=== PATIENT | male | born 1955 | race Two or more races ===

== ENCOUNTER 2016-12-16 11:59 | Inpatient (IN) | payer BC ==
[~2016-12-16] VITALS: Ht 165.1 cm; Wt 90.7 kg
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
--- NOTE | 2016-12-16 12:20 | NUR ---
joe fleming at bedside for eval.
[2016-12-16 12:30] LABS: BASOPHILS % (AUTO) 0.6 % (0.0-2.0); EOSINOPHILS # (AUTO) 0.3 /CMM (0.0-0.7); EOSINOPHILS % (AUTO) 4.3 % (0.0-6.0); HEMATOCRIT 33 % (39-51); HEMOGLOBIN 11.3 g/dL (13.5-17.5); LYMPHOCYTES # (AUTO) 1.8 /CMM (0.8-4.8); LYMPHOCYTES % (AUTO) 25.7 % (20.0-44.0); MEAN CORPUSCULAR HEMOGLOBIN 28 PG (26.0-33.0); MEAN CORPUSCULAR HGB CONC 34 g/dl (31.0-36.0); MEAN CORPUSCULAR VOLUME 83 fL (80-96); MONOCYTES # (AUTO) 0.5 /CMM (0.1-1.30); MONOCYTES % (AUTO) 6.7 % (2.0-12.0); NEUTROPHILS # (AUTO) 4.4 /CMM (1.8-8.9); NEUTROPHILS % (AUTO) 62.7 % (43.0-81.0); PLATELET COUNT (AUTO) 213 /CMM (150-450); RED BLOOD CELL COUNT(AUTO) 4.01 MIL/uL (4.5-6.0); WHITE BLOOD COUNT (AUTO) 7.1 K/uL (4.3-11.0)
[2016-12-16] MEDS ORDERED: TRAMADOL HCL 50 MG TABLET PO ONE (12:30)
[2016-12-16] MEDS ORDERED: TRAMADOL HCL 50 MG TABLET ONE (12:35)
[2016-12-16 12:45] LABS: ALBUMIN 3.5 g/dL (3.4-5.0); BILIRUBIN,DIRECT 0.1 mg/dL (0.0-0.2); BILIRUBIN,TOTAL 0.3 mg/dL (0.2-1.0); CALCIUM, SERUM 9.6 mg/dL (8.5-10.1); POTASSIUM 3.7 mmol/L (3.5-5.1); TOTAL PROTEIN, SERUM 7.3 g/dL (6.4-8.2)
[2016-12-16] MEDS ORDERED: IV NS 0.9% 0 ML ONE (13:00)
[2016-12-16] MEDS ORDERED: IV NS 0.9% 1,000 ML BAG IV ONE (13:00)
[2016-12-16] MEDS ORDERED: IV SET PRIMARY PUMP SET 1 EA INFUS.SET MC ONE ×2 (13:00→15:28)
[2016-12-16] MEDS ORDERED: IV SET PRIMARY 1 EA INFUS.SET MC ONE (13:02)
[2016-12-16] MEDS ORDERED: IV NS 0.9% 1,000 ML ONE (13:02)
[2016-12-16 13:08] LABS: PROTHROMBIN TIME 10.4 SECS (9.5-12.7); TROPONIN I < 0.017 ng/mL (0.00-0.056)
[2016-12-16 13:16] LABS: APPEARANCE,URINE Clear (CLEAR); BILIRUBIN,URINE Negative (NEGATIVE); BLOOD, URINE Negative Ery/uL (NEGATIVE); COLOR,URINE Yellow (YELLOW); KETONES,URINE Negative (NEGATIVE); LEUKOCYTE ESTERASE ,URINE Negative (NEGATIVE); NITRITE, URINE Negative (NEGATIVE); PH,URINE 6.5 (5.0-8.0); PROTEIN,URINE >=300 mg/dl (NEGATIVE); UGLUCOSE Negative (NEGATIVE); UROBILINOGEN,URINE 0.2 EU/dL (0.2)
--- NOTE | 2016-12-16 13:18 | NUR ---
CALLED NURSING SUP. FOR TELE BED
[2016-12-16 13:22] LABS: SERUM AMMONIA 17 umol/L (11-32)
--- NOTE | 2016-12-16 13:35 | NUR ---
pt to radiology for head ct scan via wheelchair.
[2016-12-16] MEDS ORDERED: FINA5TAB11 PO (13:36)
[2016-12-16] MEDS ORDERED: PANT40TA4 PO (13:36)
[2016-12-16] MEDS ORDERED: CALC667C6 PO (13:36)
[2016-12-16] MEDS ORDERED: HYDR100T27 PO (13:36)
[2016-12-16] MEDS ORDERED: NORT25CA PO (13:36)
[2016-12-16] MEDS ORDERED: CLON0.2T PO (13:36)
[2016-12-16] MEDS ORDERED: ISOS30TA6 PO (13:36)
[2016-12-16] MEDS ORDERED: DOXA4TAB2 PO (13:36)
[2016-12-16] MEDS ORDERED: HYDR25TA4 PO (13:36)
[2016-12-16] MEDS ORDERED: LOVA20TA2 PO (13:36)
[2016-12-16] MEDS ORDERED: DILT240C56 PO (13:36)
[2016-12-16] MEDS ORDERED: TAMS-12 PO (13:36)
--- NOTE | 2016-12-16 14:00 | NUR ---
ELLA PAGED, TILE LAYER HELPER
--- NOTE | 2016-12-16 14:27 | NUR ---
report given to nurse. pt awaiting transfer to floor.
--- NOTE | 2016-12-16 14:40 | NUR ---
MS RN OPENING NOTES RECEIVED PT FROM ER ROOM IN STABLE CONDITION. NO SOB OR SIGNS OF DISTRESS NOTED. PT WAS TRANSFERRED TO THE BED SAFELY. AT BEDSIDE. WILL CONTINUE ADMISSION PROCESS AND CARRY OUT ORDERS.
[2016-12-16] MEDS ORDERED: Z GUARD REMEDY 2 OZ OINT TP PRN (15:00)
[2016-12-16] MEDS ORDERED: ONDANSETRON HCL/PF 4 MG/2 ML VIAL IVP PRN (15:00)
[2016-12-16] MEDS ORDERED: MAG HYDROX/AL HYDROX/SIMETH 30 ML UDC PO PRN (15:00)
[2016-12-16] MEDS ORDERED: ZOLPIDEM TARTRATE 5 MG TABLET PO PRN (15:00)
[2016-12-16] MEDS ORDERED: MAGNESIUM HYDROXIDE 30 ML UDC PO PRN (15:00)
[2016-12-16] MEDS ORDERED: ACETAMINOPHEN 325 MG TABLET PO PRN (15:00)
[2016-12-16] MEDS: IV NS 0.9% 1,000 ML IV PRN (15:46)
[2016-12-16 16:00] VITALS: BP 137/67
[2016-12-16 16:15] VITALS: BP 137/67
[2016-12-16] MEDS: CALCIUM ACETATE 667 MG TABLET PO SCH (17:12)
[2016-12-16] MEDS: hydrALAZINE HCL 50 MG TABLET PO SCH (17:13)
--- NOTE | 2016-12-16 18:27 | NUR ---
DEFENCE INTELLIGENCE ANALYST NOTES PT IN STABLE CONDITION, AWAKE AND IN BED. A/O X4. TELE MONITOR ON READING SR 1ST DEGREE AV BLOCK. NO SOB OR SIGNS OF DISTRESS AT THIS TIME. IV ON LEFT AC 28G RUNNING NS AT 125ML/HR. PT IS TOLERATING IT WELL. IV PATENT AND IN TACT. NO REDNESS OR INFLAMMATION NOTED. SON AND AT BEDSIDE. BED IN LOW LOCKED POSITION, SIDE RAILS UP X2, CALL LIGHT WITHIN PT REACH. ALL SAFETY MEASURES ENFORCED. ALL ORDERS CARRIED OUT AND PT NEEDS WELL ATTENDED TO. WILL ENDORSE TO ENGINEER GAS PUMPING STATION NURSE OR WILFRED Addendum: 12/16/16 at 1832 by GABRIELLE COOK RN DEFENCE INTELLIGENCE ANALYST CLOSING NOTES
[2016-12-16 20:00] VITALS: BP 144/85
[2016-12-16] MEDS: HYDROCODONE/APAP 5/325MG 1 EACH TABLET PO PRN (20:02)
[2016-12-16] MEDS: ISOSORBIDE MONONITRATE (30MG) 30 MG TAB.SR.24H PO SCH (22:00)
[2016-12-16] MEDS ORDERED: LOVASTATIN (NON FORMULARY) 20 MG TABLET PO SCH (22:00)
[2016-12-16] MEDS ORDERED: HYDROCHLOROTHIAZIDE 25 MG TABLET PO SCH (22:00)
[2016-12-16] MEDS: ATORVASTATIN 10 MG TABLET PO SCH (22:06)
[2016-12-16] MEDS: FINASTERIDE (5 MG) 5 MG TABLET PO SCH (22:06)
[2016-12-16] MEDS: CLONIDINE HCL 0.1 MG TABLET PO SCH (22:06)
[2016-12-16] MEDS: TAMSULOSIN 0.4 MG CAP.SR.24H PO SCH (22:07)
[2016-12-16] MEDS: NORTRIPTYLINE HCL 25 MG CAPSULE PO SCH (22:07)
[2016-12-17] VITALS: BP 133/85
[2016-12-17] MEDS: IV NS 0.9% 1,000 ML IV PRN ×3 (00:12→18:12)
[2016-12-17 04:00] VITALS: BP 140/81
[2016-12-17 06:26] LABS: BASOPHILS % (AUTO) 0.7 % (0.0-2.0); EOSINOPHILS # (AUTO) 0.3 /CMM (0.0-0.7); EOSINOPHILS % (AUTO) 6.1 % (0.0-6.0); HEMATOCRIT 31 % (39-51); HEMOGLOBIN 10.6 g/dL (13.5-17.5); LYMPHOCYTES # (AUTO) 1.5 /CMM (0.8-4.8); LYMPHOCYTES % (AUTO) 26.9 % (20.0-44.0); MEAN CORPUSCULAR HEMOGLOBIN 29 PG (26.0-33.0); MEAN CORPUSCULAR HGB CONC 34 g/dl (31.0-36.0); MEAN CORPUSCULAR VOLUME 84 fL (80-96); MONOCYTES # (AUTO) 0.4 /CMM (0.1-1.30); MONOCYTES % (AUTO) 7.4 % (2.0-12.0); NEUTROPHILS # (AUTO) 3.2 /CMM (1.8-8.9); NEUTROPHILS % (AUTO) 58.9 % (43.0-81.0); PLATELET COUNT (AUTO) 184 /CMM (150-450); RDW COEFFICIENT OF VARIATION 12.9 (11.5-15.0); RED BLOOD CELL COUNT(AUTO) 3.69 MIL/uL (4.5-6.0); WHITE BLOOD COUNT (AUTO) 5.4 K/uL (4.3-11.0)
[2016-12-17] MEDS ORDERED: FLUTICASONE PROPIONATE 16 GM BOTTLE NS PRN (06:30)
--- NOTE | 2016-12-17 06:48 | NUR ---
OPERATIONS PLANT ATTENDANT NOTES AWAKE & RESPONSIVE. NOT IN ANY DISTRESS. NO SOB NOTED. DENIES ANY PAIN OR DISCOMFORT AT THIS TIME. ON TELE SR @ 72 WITH 1AVB WITH IVF INFUSING WELL. MONITORED ACCORDINGLY. CALL LIGHT WITHIN REACH. BED IN LOWEST POSITION. SR UP X 2 FOR SAFETY. WILL ENDORSE TO NEXT SHIFT.
[2016-12-17 06:49] LABS: CALCIUM, SERUM 8.5 mg/dL (8.5-10.1); CREATININE 4.2 mg/dL (0.6-1.3); MAGNESIUM 2.1 mg/dL (1.8-2.4); PHOSPHORUS 4.3 mg/dL (2.5-4.9); POTASSIUM 3.9 mmol/L (3.5-5.1)
[2016-12-17 08:00] VITALS: BP 134/76
--- NOTE | 2016-12-17 08:00 | NUR ---
AM RN NOTES RECEIVED PT IN STABLE CONDITION, AWAKE, NO SOB OR DISTRESS NOTED, NO PAIN OR DISCOMFORT, PROVIDED WITH BREAKFAST.
[2016-12-17] MEDS: hydrALAZINE HCL 50 MG TABLET PO SCH ×3 (08:35→16:22)
[2016-12-17] MEDS: CALCIUM ACETATE 667 MG TABLET PO SCH ×3 (08:35→17:13)
[2016-12-17] MEDS: PANTOPRAZOLE 40 MG TABLET.DR PO SCH (08:35)
[2016-12-17] MEDS ORDERED: DOXAZOSIN MESYLATE (4 MG) 4 MG TABLET PO SCH (09:00)
[2016-12-17] MEDS ORDERED: IV NS 0.9% 1,000 ML BAG IV SCH (09:00)
[2016-12-17] MEDS: CHOLECALCIFEROL 1,000 UNIT TABLET (VIT D3) PO SCH (12:37)
[2016-12-17 16:00] VITALS: BP 149/85
[2016-12-17] MEDS: DOXAZOSIN MESYLATE (4 MG) 4 MG TABLET PO SCH (16:23)
--- NOTE | 2016-12-17 17:13 | NUR ---
URINE COLLECTED AND LAB CALLED.
[2016-12-17 18:48] LABS: CREATININE, URINE 40.2 MG/DL (30.0-125.0); URINE TOTAL PROTEIN 135.1 mg/dL (0-11.9)
--- NOTE | 2016-12-17 19:00 | NUR ---
MS RN OPENING NOTES RECEIVED PATIENT IN BED IN STABLE CONDITION, IV SITE INTACT WITH S/S OF INFILTRATION. NO S/S OF DISTRESS NO SOB, NO CHEST PAIN. NO S/S PAIN, SAFE FREE ENVIRONMENT PROVIDED FREE OF CLUTTERS, WILL CONTINUE TO MONITOR, ON LOW BED TO ENSURE SAFETY, CALL LIGHT WITHIN REACH.
--- NOTE | 2016-12-17 19:30 | NUR ---
PT IN STABLE CONDITION, INDORSED TO NEXT SHIFT FOR WILFRED
[2016-12-17 20:00] VITALS: BP_SYST 158; BP_DIAS 101; BP_DIAS 99
[2016-12-17] MEDS: TAMSULOSIN 0.4 MG CAP.SR.24H PO SCH (21:45)
[2016-12-17] MEDS: NORTRIPTYLINE HCL 25 MG CAPSULE PO SCH (21:45)
[2016-12-17] MEDS: FINASTERIDE (5 MG) 5 MG TABLET PO SCH (21:45)
[2016-12-17] MEDS: ATORVASTATIN 10 MG TABLET PO SCH (21:45)
[2016-12-17] MEDS: HYDROCODONE/APAP 5/325MG 1 EACH TABLET PO PRN (21:46)
[2016-12-17] MEDS: ISOSORBIDE MONONITRATE (30MG) 30 MG TAB.SR.24H PO SCH (21:46)
[2016-12-17] MEDS: CLONIDINE HCL 0.1 MG TABLET PO SCH (21:47)
[2016-12-17] MEDS ORDERED: DILTIAZEM HCL CD 240 MG PO SCH (22:00)
[2016-12-18] MEDS: IV NS 0.9% 1,000 ML IV PRN (03:47)
--- NOTE | 2016-12-18 06:27 | NUR ---
MS RN CLOSING NOTES PATIENT COMFORTABLY ASLEEP AND EASILY AWAKEN, IV 125 CC/HR RUNNING IVF. TOLERATED WELL. IV SITE NO S/S OF INFILTRATED, PATIENT DENIES PAIN AT THIS TIME. 0/10 RESPIRATIONS EVEN AND UNLABORED. NO S/S OF ACUTE DISTRESS, NO SOB, NO COUGH, NO CONGESTION, SKIN WARM AND DRY TO TOUCH, AFEBRILE, ALL NURSING CARE NEEDS PROVIDED AND RENDERED, NEEDS ATTENDED AND ANTICIPATED, KEPT CLEAN AND DRY AND COMFORTABLE, BLADDER NOT DISTENDED, GOOD SKIN CARE PROVIDED. OFFLOAD AT ALL TIMES. ABDOMEN SOFT AND NON TENDER. NO C/O OF CONSTIPATION. ALL DUE MEDS WAS GIVEN TOLERATED. FREQUENT VISUAL CHECK DONE FOR SAFETY EVERY 2 HOURS. SAFE HAZARD FREE ENVIRONMENT PROVIDED. CALL LIGHT WITHIN EASY TO REACH, ON LOW BED AT ALL TIMES TO ENSURE SAFETY, WILL ENDORSE TO THE NEXT SHIFT CONTINUE PLAN OF CARE.
--- NOTE | 2016-12-18 07:17 | NUR ---
MS RN OPENING NOTES PATIENT RECEIVED IN BED IN AWAKE IN NO ACUTE SIGNS OF DISTRESS. ALERT AND ORIENTED X4. ABLE TO VERBALIZED NEEDS AND CONCERNS, NO COMPLAINTS OF PAIN OR DISCOMFORTS VOICED AT THIS TIME. ON ROOM AIR, NO SOB OBSERVED. IV ACCESS ON LAC INTACT AND PATENT WITH ONGOING IVF OF NS @ 125 ML/HR, NO SIGNS OF INFILTRATION NOTED. BED ON LOW POSITION AND LOCKED. CALL LIGHT WITHIN EASY REACH. SAFE FREE ENVIRONMENT MAINTAINED. WILL CONTINUE TO MONITOR ACCORDINGLY.
[2016-12-18 07:34] LABS: BASOPHILS % (AUTO) 0.8 % (0.0-2.0); EOSINOPHILS # (AUTO) 0.4 /CMM (0.0-0.7); EOSINOPHILS % (AUTO) 6.7 % (0.0-6.0); HEMATOCRIT 29 % (39-51); HEMOGLOBIN 9.8 g/dL (13.5-17.5); LYMPHOCYTES # (AUTO) 1.3 /CMM (0.8-4.8); LYMPHOCYTES % (AUTO) 24.2 % (20.0-44.0); MEAN CORPUSCULAR HEMOGLOBIN 28 PG (26.0-33.0); MEAN CORPUSCULAR HGB CONC 34 g/dl (31.0-36.0); MEAN CORPUSCULAR VOLUME 83 fL (80-96); MONOCYTES # (AUTO) 0.4 /CMM (0.1-1.30); NEUTROPHILS # (AUTO) 3.4 /CMM (1.8-8.9); NEUTROPHILS % (AUTO) 61.3 % (43.0-81.0); PLATELET COUNT (AUTO) 172 /CMM (150-450); RED BLOOD CELL COUNT(AUTO) 3.47 MIL/uL (4.5-6.0); WHITE BLOOD COUNT (AUTO) 5.5 K/uL (4.3-11.0)
[2016-12-18 07:41] LABS: CALCIUM, SERUM 8.2 mg/dL (8.5-10.1); CREATININE 3.8 mg/dL (0.6-1.3); POTASSIUM 4.1 mmol/L (3.5-5.1)
[2016-12-18] MEDS: PANTOPRAZOLE 40 MG TABLET.DR PO SCH (07:44)
[2016-12-18] MEDS: CALCIUM ACETATE 667 MG TABLET PO SCH (07:45)
[2016-12-18 08:00] VITALS: BP 139/75
[2016-12-18] MEDS: DOXAZOSIN MESYLATE (4 MG) 4 MG TABLET PO SCH (08:37)
[2016-12-18] MEDS: CHOLECALCIFEROL 1,000 UNIT TABLET (VIT D3) PO SCH (08:38)
[2016-12-18 08:39] VITALS: BP 139/75
[2016-12-18] MEDS: hydrALAZINE HCL 50 MG TABLET PO SCH (08:39)
[2016-12-18] MEDS ORDERED: VIT B CMPLX 3/FA/VIT C/BIOTIN 1 TAB TABLET PO SCH (09:00)
== END 2016-12-18 10:20 | disposition home or self-care (01) | DRG 682 ==
LOC: ER 12:01 → TELE 14:23 → MED 12-17 08:41
PROVIDERS: ADMIT Family Medicine; ATTEND Family Medicine
DX: N17.0 Acute kidney failure with tubular necrosis (principal); G93.41 Metabolic encephalopathy; N02.8 Recurrent and persistent hematuria with other morphologic changes; E78.5 Hyperlipidemia, unspecified; N18.9 Chronic kidney disease, unspecified; N40.0 Benign prostatic hyperplasia without lower urinary tract symptoms; D64.9 Anemia, unspecified; V49.49XA Driver injured in collision with other motor vehicles in traffic accident, initial encounter; Y92.410 Unspecified street and highway as the place of occurrence of the external cause; M54.9 Dorsalgia, unspecified
CPT/HCPCS: 36415; 70450-TC; 71010-TC; 72050-TC; 72074-TC; 72110-TC; 80048-TC; 80061-TC; 80076-TC; 81000-TC; 82140-TC; 82570-TC; 83735-TC; 84100-TC; 84155-TC; 84484-TC; 85025-TC; 85730-TC; 87081-TC; A4606; G0480; J7030; Z7610

== ENCOUNTER 2017-01-06 16:54 | Inpatient (IN) | payer BC ==
[~2017-01-06] VITALS: Ht 172.7 cm; Wt 85.7 kg
[~2017-01-06 16:54] MED LIST: CALC667C6 PO; CLON0.2T PO; DILT240C56 PO; DOXA4TAB2 PO; FINA5TAB11 PO; HYDR100T27 PO; ISOS30TA6 PO; LOVA20TA2 PO; NORT25CA PO; PANT40TA4 PO; TAMS-12 PO
--- NOTE | 2017-01-06 18:05 | NUR ---
PT BIB SELF C/O DIARRHEA AND ABD PAIN X2 DAYS. SKIN WARM NONDIAPHORETIC. RESP EVEN UNLABORED. PT APPEARS DEHYDRATED AND LOOKS GENERALLY UNWELL, THOUGH NOT IN ACUTE DISTRESS. AMBULATORY WITH STEADY GAIT. DENIES DYSURIA/HEMATURIA. DENIES N/V. DENIES BLOOD IN STOOL. IN ER BED 09.
[2017-01-06 18:23] LABS: BASOPHILS % (AUTO) 0.3 % (0.0-2.0); EOSINOPHILS # (AUTO) 0.2 /CMM (0.0-0.7); EOSINOPHILS % (AUTO) 2.6 % (0.0-6.0); HEMATOCRIT 32 % (39-51); HEMOGLOBIN 10.9 g/dL (13.5-17.5); LYMPHOCYTES # (AUTO) 1.1 /CMM (0.8-4.8); LYMPHOCYTES % (AUTO) 12.5 % (20.0-44.0); MEAN CORPUSCULAR HEMOGLOBIN 28 PG (26.0-33.0); MEAN CORPUSCULAR HGB CONC 34 g/dl (31.0-36.0); MEAN CORPUSCULAR VOLUME 84 fL (80-96); MONOCYTES # (AUTO) 0.5 /CMM (0.1-1.30); MONOCYTES % (AUTO) 5.9 % (2.0-12.0); NEUTROPHILS # (AUTO) 7.1 /CMM (1.8-8.9); NEUTROPHILS % (AUTO) 78.7 % (43.0-81.0); PLATELET COUNT (AUTO) 205 /CMM (150-450); RDW COEFFICIENT OF VARIATION 12.2 (11.5-15.0); RED BLOOD CELL COUNT(AUTO) 3.86 MIL/uL (4.5-6.0); WHITE BLOOD COUNT (AUTO) 8.9 K/uL (4.3-11.0)
[2017-01-06] MEDS ORDERED: MORPHINE SULFATE INJ 2 MG/ML DISP.SYRIN IV ONE ×2 (18:30→20:30)
[2017-01-06] MEDS ORDERED: IV NS 0.9% 1,000 ML BAG IV ONE (18:30)
[2017-01-06] MEDS ORDERED: ONDANSETRON HCL/PF 4 MG/2 ML VIAL IVP ONE (18:30)
[2017-01-06 18:35] LABS: PROTHROMBIN TIME 10.4 SECS (9.5-12.7)
[2017-01-06 18:36] LABS: ALBUMIN 3.3 g/dL (3.4-5.0); BILIRUBIN,DIRECT 0.1 mg/dL (0.0-0.2); BILIRUBIN,TOTAL 0.3 mg/dL (0.2-1.0); CALCIUM, SERUM 9.3 mg/dL (8.5-10.1); CREATININE 4.7 mg/dL (0.6-1.3); POTASSIUM 4.5 mmol/L (3.5-5.1)
[2017-01-06] MEDS ORDERED: MORPHINE SULFATE INJ 4 MG/ML DISP.SYRIN ONE ×2 (18:43→21:11)
[2017-01-06] MEDS ORDERED: IV SET PRIMARY 1 EA INFUS.SET MC ONE (18:43)
[2017-01-06] MEDS ORDERED: ONDANSETRON HCL/PF 4 MG/2 ML VIAL ONE (18:43)
[2017-01-06] MEDS ORDERED: IV NS 0.9% 1,000 ML ONE ×2 (18:43→23:26)
--- NOTE | 2017-01-06 20:00 | NUR ---
RESTING QUIETLY IN BED, NAD NOTED. ALL NEEDS ATTENDED TO. VSS.
--- NOTE | 2017-01-06 20:13 | NUR ---
CALLED NURSING SUP. FOR MS BED
--- NOTE | 2017-01-06 20:14 | NUR ---
EPIC PAGED, DR. TREVOR Ceron DENTISTRY TEACHER
--- NOTE | 2017-01-06 20:41 | NUR ---
MS 112-1
--- NOTE | 2017-01-06 20:41 | NUR ---
Fran crawford in [facility] - 01/06/17 at 2041 by TROY MS [id number]
--- NOTE | 2017-01-06 21:12 | NUR ---
REPORT CALLED TO KELTON LINARES FOR ADMISSION
--- NOTE | 2017-01-06 21:15 | NUR ---
MORPHINE 4MG IVP ADMINISTERED FOR ABD PAIN. ALL NEEDS ATTENDED TO.
[2017-01-06 21:25] LABS: APPEARANCE,URINE Clear (CLEAR); BILIRUBIN,URINE Negative (NEGATIVE); BLOOD, URINE Negative Ery/uL (NEGATIVE); COLOR,URINE Yellow (YELLOW); KETONES,URINE Negative (NEGATIVE); LEUKOCYTE ESTERASE ,URINE Negative (NEGATIVE); NITRITE, URINE Negative (NEGATIVE); PH,URINE 5.5 (5.0-8.0); PROTEIN,URINE >=300 mg/dl (NEGATIVE); UGLUCOSE Negative (NEGATIVE); UROBILINOGEN,URINE 0.2 EU/dL (0.2)
[2017-01-06] MEDS ORDERED: Z GUARD REMEDY 2 OZ OINT TP PRN (21:30)
[2017-01-06] MEDS ORDERED: ZOLPIDEM TARTRATE 5 MG TABLET PO PRN (21:30)
[2017-01-06] MEDS ORDERED: ACETAMINOPHEN 325 MG TABLET PO PRN (21:30)
[2017-01-06] MEDS ORDERED: ONDANSETRON HCL/PF 4 MG/2 ML VIAL IVP PRN (21:30)
--- NOTE | 2017-01-06 21:49 | NUR ---
HUNG RN: REPORT GIVEN TO HERSON HAMPTON FOR ADMISSION
[2017-01-06] MEDS ORDERED: LOVASTATIN (NON FORMULARY) 20 MG TABLET PO SCH (22:00)
--- NOTE | 2017-01-06 22:28 | NUR ---
pt transported to [facility] in stable condition via wheelchair
[2017-01-06 22:35] VITALS: BP 151/88
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
[2017-01-06] MEDS ORDERED: IV SET PRIMARY PUMP SET 1 EA INFUS.SET MC ONE (23:26)
[2017-01-06] MEDS: IV NS 0.9% 1,000 ML IV PRN (23:36)
[2017-01-07] MEDS ORDERED: ISOSORBIDE MONONITRATE (30MG) 30 MG TAB.SR.24H PO ONE
[2017-01-07] MEDS ORDERED: FINASTERIDE (5 MG) 5 MG TABLET ONE (00:01)
[2017-01-07] MEDS ORDERED: NORTRIPTYLINE HCL 25 MG CAPSULE ONE (00:02)
[2017-01-07] MEDS ORDERED: TAMSULOSIN 0.4 MG CAP.SR.24H ONE ×2 (00:03→00:07)
[2017-01-07] MEDS: TAMSULOSIN 0.4 MG CAP.SR.24H PO SCH ×2 (00:15→21:16)
[2017-01-07] MEDS: ISOSORBIDE MONONITRATE (30MG) 30 MG TAB.SR.24H PO SCH ×2 (00:17→21:17)
[2017-01-07] MEDS: NORTRIPTYLINE HCL 25 MG CAPSULE PO SCH ×2 (00:19→21:16)
[2017-01-07] MEDS: FINASTERIDE (5 MG) 5 MG TABLET PO SCH ×2 (00:20→21:16)
--- NOTE | 2017-01-07 07:00 | NUR ---
MS/FUNERAL PRE NEED CONSULTANT; PT SAID HE DID NOT SLEEP GOOD. NO N/V NOR DIARRHEA. NO C/O ABDOMINAL PAIN. VOIDING CLEAR YELLOW URINE USED URINAL GOOD AMOUNT. CONTINUE TO MONITOR. CALL LIGHT AND URINAL WITHIN REACH. WILL ENDORSE TO THE DAY SHIFT NURSE.
--- NOTE | 2017-01-07 07:09 | NUR ---
MS/RN OPENING NOTES RECEIVED PATIENT AWAKE IN BED IN NO ACUTE SIGNS OF DISTRESS. ALERT AND ORIENTED X3, DENIES ANY PAIN OR DISCOMFORTS AT THIS TIME. ON ROOM AIR, NO SOB NOTED. IV ACCESS ON LEFT AC # 020 INTACT AND PATENT WITH IVF OF NS A2 75ML/HR INFUSING WELL, NO SIGNS OF INFILTRATION NOTED. BED LOW AND LOCKED. CALL LIGHT WITHIN REACH, WILL CONTINUE TO MONITOR PATIENT.
[2017-01-07 08:00] VITALS: BP 119/66
[2017-01-07 08:11] LABS: BASOPHILS % (AUTO) 0.2 % (0.0-2.0); EOSINOPHILS # (AUTO) 0.2 /CMM (0.0-0.7); EOSINOPHILS % (AUTO) 3.2 % (0.0-6.0); HEMATOCRIT 30 % (39-51); HEMOGLOBIN 10.3 g/dL (13.5-17.5); LYMPHOCYTES # (AUTO) 0.9 /CMM (0.8-4.8); LYMPHOCYTES % (AUTO) 12.8 % (20.0-44.0); MEAN CORPUSCULAR HEMOGLOBIN 28 PG (26.0-33.0); MEAN CORPUSCULAR HGB CONC 34 g/dl (31.0-36.0); MEAN CORPUSCULAR VOLUME 83 fL (80-96); MONOCYTES # (AUTO) 0.5 /CMM (0.1-1.30); MONOCYTES % (AUTO) 6.2 % (2.0-12.0); NEUTROPHILS # (AUTO) 5.8 /CMM (1.8-8.9); NEUTROPHILS % (AUTO) 77.6 % (43.0-81.0); PLATELET COUNT (AUTO) 194 /CMM (150-450); RDW COEFFICIENT OF VARIATION 13.1 (11.5-15.0); RED BLOOD CELL COUNT(AUTO) 3.64 MIL/uL (4.5-6.0); WHITE BLOOD COUNT (AUTO) 7.4 K/uL (4.3-11.0)
[2017-01-07] MEDS: PANTOPRAZOLE 40 MG TABLET.DR PO SCH (08:34)
[2017-01-07] MEDS: CALCIUM ACETATE 667 MG TABLET PO SCH ×3 (08:34→18:05)
[2017-01-07 08:37] LABS: CALCIUM, SERUM 8.5 mg/dL (8.5-10.1); CREATININE 4.1 mg/dL (0.6-1.3); PHOSPHORUS 4.5 mg/dL (2.5-4.9); POTASSIUM 4.2 mmol/L (3.5-5.1)
[2017-01-07] MEDS: DOXAZOSIN MESYLATE (4 MG) 4 MG TABLET PO SCH (08:37)
[2017-01-07] MEDS: hydrALAZINE HCL 50 MG TABLET PO SCH ×3 (08:37→16:11)
[2017-01-07 08:40] LABS: THYROID STIMULATING HORMONE 2.38 uIU/mL (0.358-3.74)
[2017-01-07] MEDS ORDERED: PANTOPRAZOLE 40 MG VIAL IV SCH (09:00)
--- NOTE | 2017-01-07 09:48 | NUR ---
WOUND CARE CONSULT: PT PRESENTS WITH SCARRING/SKIN STAINING TO GLUTEAL CREASE AND SACRAL AREAS, PRESENT ON ADMISSION. PT IS CONTINENT AT THIS TIME AND INDEPENDENT WITH SKIN MOBILITY. WILL SEE PRN. Addendum: 01/07/17 at 0949 by JHONNY CONNOLLY WNDNU Amended: Links added. Addendum: 01/07/17 at 0949 by JHONNY CONNOLLY WNDNU CORRECTION: ABOVE SHOULD READ INDEPENDENT WITH BED MOBILITY.
[2017-01-07] MEDS: IV NS 0.9% 1,000 ML IV PRN (14:47)
[2017-01-07 16:00] VITALS: BP 147/89
[2017-01-07] MEDS: HYDROCODONE/APAP 5/325MG 1 EACH TABLET PO PRN (16:07)
--- NOTE | 2017-01-07 18:34 | NUR ---
MS RN CLOSING NOTES PATIENT IN BED ALERT AND ORIENTED X 4, NO COMPLAINTS OF PAIN OR DISCOMFORTS AT THIS TIME. HOB ELEVATED. STILL WITH DIARRHEA AND HAD BOWEL MOVEMENT X 5 THIS SHIFT. MANAGER ADULT Luisa MONSON AWARE OF PT'S CONDITION. IVF OF NS @ 75ML/HR IN PROGRESS, NO S/S OF INFILTRATION TO IV SITE NOTED. ALL NEEDS AND CARE WELL PROVIDED. DUE MEDS GIVEN ORDERED. CALL LIGHT WITHIN REACH. ALL SAFETY MEASURES IN PLACE. WILL ENDORSED TO CROSSBAR SWITCH ADJUSTER FOR WILFRED.
--- NOTE | 2017-01-07 19:00 | NUR ---
MS RN OPENING NOTES RECEIVED PATIENT IN BED, AWAKE, IV SITE INTACT WITH NO S/S OF INFILTRATION NOTED. NO S/S OF BLEEDING NOTED. NO S/S OF DISTRESS, NO CHEST PAIN IN STABLE CONDITION. KEPT CLEAN DRY AND COMFORTABLE. SAFE HAZARD FREE ENVIRONMENT PROVIDED. WILL CONTINUE TO MONITOR PATIENT.
[2017-01-07 20:00] VITALS: BP 165/94
[2017-01-07] MEDS ORDERED: ATORVASTATIN 10 MG TABLET PO SCH (22:00)
[2017-01-08] MEDS: HYDROCODONE/APAP 5/325MG 1 EACH TABLET PO PRN ×3 (00:53→17:29)
[2017-01-08] MEDS: IV NS 0.9% 1,000 ML IV PRN (05:13)
--- NOTE | 2017-01-08 06:25 | NUR ---
MS RN CLOSING NOTES PATIENT COMFORTABLY ASLEEP AND EASILY AWAKEN, HEAD OF BED ELEVATED FOR BETTER LUNG EXPANSION. 02 SAT AT 98% R.A TOLERATING ROOM AIR, IV HYDRATION ONGOING NS AT 75 CC, IV SITE NO S/S OF INFILTRATED, PATIENT DENIES PAIN AT THIS TIME. 0/10 RESPIRATIONS EVEN AND UNLABORED. NO S/S OF ACUTE DISTRESS, NO SOB, NO COUGH, NO CONGESTION, SKIN WARM AND DRY TO TOUCH, AFEBRILE, ALL NURSING CARE NEEDS PROVIDED AND RENDERED, NEEDS ATTENDED AND ANTICIPATED, KEPT CLEAN AND DRY AND COMFORTABLE, BLADDER NOT DISTENDED, URINATED 3X, DEFECATED X 2. AMB WITH ASSIST. GOOD SKIN CARE PROVIDED. ABDOMEN SOFT AND NON TENDER. NO C/O OF CONSTIPATION. ALL DUE MEDS WAS GIVEN TOLERATED. FREQUENT VISUAL CHECK DONE FOR SAFETY EVERY 2 HOURS. ASSISTED REPOSITIONED EVERY 2 HOURS FOR COMFORT AND SKIN MGT. SAFE HAZARD FREE ENVIRONMENT PROVIDED. CALL LIGHT WITHIN EASY TO REACH, ON LOW BED AT ALL TIMES TO ENSURE SAFETY, WILL ENDORSE TO THE NEXT SHIFT CONTINUE PLAN OF CARE.
[2017-01-08 06:52] LABS: BASOPHILS % (AUTO) 0.1 % (0.0-2.0); EOSINOPHILS # (AUTO) 0.2 /CMM (0.0-0.7); EOSINOPHILS % (AUTO) 2.7 % (0.0-6.0); HEMATOCRIT 30 % (39-51); HEMOGLOBIN 10.3 g/dL (13.5-17.5); LYMPHOCYTES # (AUTO) 0.9 /CMM (0.8-4.8); LYMPHOCYTES % (AUTO) 13.2 % (20.0-44.0); MEAN CORPUSCULAR HEMOGLOBIN 28 PG (26.0-33.0); MEAN CORPUSCULAR HGB CONC 34 g/dl (31.0-36.0); MEAN CORPUSCULAR VOLUME 84 fL (80-96); MONOCYTES # (AUTO) 0.5 /CMM (0.1-1.30); MONOCYTES % (AUTO) 6.6 % (2.0-12.0); NEUTROPHILS # (AUTO) 5.4 /CMM (1.8-8.9); NEUTROPHILS % (AUTO) 77.4 % (43.0-81.0); PLATELET COUNT (AUTO) 181 /CMM (150-450); RDW COEFFICIENT OF VARIATION 12.9 (11.5-15.0); RED BLOOD CELL COUNT(AUTO) 3.64 MIL/uL (4.5-6.0)
[2017-01-08 07:05] LABS: CALCIUM, SERUM 8.3 mg/dL (8.5-10.1); CREATININE 3.5 mg/dL (0.6-1.3); POTASSIUM 4.4 mmol/L (3.5-5.1)
--- NOTE | 2017-01-08 07:10 | NUR ---
MS/RN AM NOTES RECEIVED PATIENT IN BED, AWAKE, ALERT, WITHOUT SOB, NO CHEST PAIN, NO DISTRESS, RESPIRATION UNLABORED, ON RA O2 SAT 96%. IV PERIPHERAL LINE LAC INTACT, PATENT, DENIES PAIN. BED IN LOW POSITION, 2 SR UP FOR SAFETY, CALL LIGHT WITHIN EASY REACH. WILL CONTINUE TO MONITOR ACCORDINGLY
[2017-01-08 08:00] VITALS: BP 139/93
[2017-01-08] MEDS: CALCIUM ACETATE 667 MG TABLET PO SCH ×3 (08:17→17:29)
[2017-01-08] MEDS: hydrALAZINE HCL 50 MG TABLET PO SCH ×3 (08:17→16:42)
[2017-01-08] MEDS: DOXAZOSIN MESYLATE (4 MG) 4 MG TABLET PO SCH (08:17)
[2017-01-08] MEDS: PANTOPRAZOLE 40 MG TABLET.DR PO SCH (08:18)
[2017-01-08 10:00] VITALS: BP 139/93
--- NOTE | 2017-01-08 10:45 | NUR ---
RN NOTES PATIENT'S HEART RATE RE-CHECKED 110, DR. IONA CALVILLO MADE AWARE. PATIENT IS ASYMPTOMATIC, NO SOB, NO CHEST PAIN, WILL CONTINUE TO MONITOR
[2017-01-08] MEDS ORDERED: COLCHICINE 0.6 MG TABLET PO PRN (11:00)
[2017-01-08] MEDS: LOPERAMIDE HCL (2 MG CAP) 2 MG CAPSULE PO PRN ×2 (11:09→19:43)
--- NOTE | 2017-01-08 11:23 | NUR ---
RN NOTES PATIENT HAS DIARRHEA X 2 EPISODE SINCE LAST NIGHT, DR. MONSON EXAMINED PATIENT ORDERED IMODIUM 2MG PO Q4H PRN FOR DIARRHEA AND COLCHICINE 0.6 MG PO Q12H PRN FOR GOUTY PAIN, PER PATIENT'S REQUEST. ORDERS NOTED, CARRIED OUT, GIVEN TO THE PATIENT, WILL CONTINUE TO MONITOR
[2017-01-08 16:00] VITALS: BP 157/89
[2017-01-08] MEDS ORDERED: LORAZEPAM 0.5 MG TABLET PO PRN (16:00)
[2017-01-08] MEDS ORDERED: METOPROLOL TARTRATE 25 MG TABLET PO SCH ×2 (16:32→21:00)
[2017-01-08 16:43] VITALS: BP 157/89
--- NOTE | 2017-01-08 16:54 | NUR ---
CHECKED PATIENT'S VITAL SIGNS, BP-157/89, P-120, R-18, T-97.7, NO PAIN, RAJINDER MONSON IN THE HOSPITAL, MADE AWARE, RECEIVED ORDER FOR METOPROLOL FOR INCREASED HEART RATE, ADMINISTERED PO, PATIENT REMAINS ASYMPTOMATIC, DENIES SOB, CHEST PAIN OR DISCOMFORT WILL CONTINUE TO MONITOR
--- NOTE | 2017-01-08 18:13 | NUR ---
REASSESSED PATIENT'S HEART RATE 100, EFFECTIVE AFTER METOPROLOL ADMINISTRATION. PATIENT ASYMPTOMATIC, NO SOB, NO CHEST PAIN, RESTING IN THE BED COMFORTABLY, FAMILY AT THE BEDSIDE
--- NOTE | 2017-01-08 18:55 | NUR ---
MS/RN CLOSING NOTES PATIENT IS IN THE BED, AWAKE, ALERT, WITHOUT SOB, NO DISTRESS, DENIES CHEST PAIN. ON RA, TOLERATING WELL,PAIN MEDICATION GIVEN FOR GOUTY PAIN. IV LINE LAC INTACT, PATENT, DENIES PAIN. MEDS GIVEN ORDERED, NEEDS MET IN TIMELY MANNER, WITH CALL LIGHT WITHIN EASY REACH ALL THE TIME. ENDORSED TO THE PHOTOSTAT OPERATOR HELPER NURSE FOR WILFRED
--- NOTE | 2017-01-08 19:00 | NUR ---
MS RN OPENING NOTES RECEIVED PATIENT IN BED, A/O X 4, IV SITE INTACT WITH NO S/S OF INFILTRATION NOTED. NO S/S OF BLEEDING NOTED. NO S/S OF DISTRESS, NO CHEST PAIN IN STABLE CONDITION. KEPT CLEAN DRY AND COMFORTABLE. SAFE HAZARD FREE ENVIRONMENT PROVIDED. WILL CONTINUE TO MONITOR PATIENT.
--- NOTE | 2017-01-08 23:14 | NUR ---
PATIENT DISCHARGE PATIENT WANTS AMA CHARGE NURSE AWARE AND WENT TO THE PATIENTS ROOM TO EXPLAIN POC STILL WANTS TO AMA STAT AND HE IS LIKE IN A HURRY RISKS AND BENEFITS EXPLAINED STILL AMA MADE AWARE. HE REFUSES TO RE TAKE PICTURES DESPITE EXPLANATION OFFERED 3 X STILL REFUSES UPON DISCHARGE. PER PATIENT HE WANTS TO LEAVE THE HOSPITAL RIGHT AWAY, PATIENT SIGNED AMA DOCUMENT, ALL BELONGINGS WAS SENT TO THE PATIENT. PATIENT REFUSES EXIT CARE UPON SIGNING THE AMA HE LEFT SIRENA. PER PATIENT I DONT NEED EXIT CARE INSTRUCTIONS. PATIENT LEFT AT 2130, VS STABLE, PATIENT ON STABLE CONDITION NO S/S OF DISTRESS NOTED, NO CHEST PAIN, NO HEADACHE, NO NAUSEA AND VOMITING, NO COMPLAINS OF PAIN, VS STABLE, TOLERATING ROOM AIR, HEALTH EDUCATION PROVIDED, EDUCATION ABOUT DISEASE AND RISKS AND BENEFITS PROVIDED. BROTHER AT BEDSIDE, IV SITE WAS REMOVED IN LAC G 20 WITH MINIMAL BLEEDING, APPLIED CLEAN DRESSING FOR PRESSURE AND KEPT CLEAN AND DRY. TOLERATED PROCEDURE WELL. MD AWARE OF PATIENT BEING DISCHARGE, DR. TREVOR TENORIO. ALL BELONGINGS WAS TAKEN, ASSIST PATIENT TO GO TO THE WHEELCHAIR WITH ALTERATION WORKER TO THE LOBBY FOR TRANSPORTATION WITH BROTHER.
== END 2017-01-08 21:40 | disposition left against medical advice (07) | DRG 391 ==
LOC: ER 17:01 → TELE-TD 20:58 → TELE 21:51 → TELE-TD 21:51 → MED 01-07 08:12
PROVIDERS: ADMIT Internal Medicine; ATTEND Internal Medicine
DX: A08.4 Viral intestinal infection, unspecified (principal); N17.0 Acute kidney failure with tubular necrosis; I12.0 Hypertensive chronic kidney disease with stage 5 chronic kidney disease or end stage renal disease; N18.5 Chronic kidney disease, stage 5; Y92.009 Unspecified place in unspecified non-institutional (private) residence as the place of occurrence of the external cause; D63.8 Anemia in other chronic diseases classified elsewhere; E86.0 Dehydration; N40.0 Benign prostatic hyperplasia without lower urinary tract symptoms; T62.91XA Toxic effect of unspecified noxious substance eaten as food, accidental (unintentional), initial encounter; E86.9 Volume depletion, unspecified
CPT/HCPCS: 36415; 71010-TC; 80048-TC; 80076-TC; 81000-TC; 83690-TC; 83735-TC; 84100-TC; 84443-TC; 85025-TC; 85730-TC; 87045-TC; 87081-TC; 89055; A4606; J2270; J2405; J7030; Z7610